=== PATIENT | female | born 1985 | race Caucasian/White ===

== ENCOUNTER 2024-02-05 01:32 | Outpatient (CLI) | payer MEDICAID, SELFPAY ==
--- NOTE | 2024-02-05 | DI.US_ITS ---
Exam(s) US OB BIOPHYSICAL PROFILE EXAM: US OB BIOPHYSICAL PROFILE CLINICAL HISTORY: , Postdates monitoring, pt requests Melvin as tech TECHNIQUE: Ultrasound biophysical profile performed using standard protocol. COMPARISON: No exams were available for comparison FINDINGS: ULTRASOUND BIOPHYSICAL PROFILE: Number of fetuses: One. position: Cephalic. heart rate: 129 bpm. Placental grade: 3. Placental location: Anterior. No evidence of previa. Amniotic fluid index: 18.2 cm. Single deepest pocket is 6.4 cm. BIOPHYSICAL PROFILE SCORE: breathin out of 2 movement: 2 out of 2 tone: 2 out of 2 Amniotic fluid: 2 out of 2 Overall biophysical profile score: 8 out of 8. IMPRESSION: Single live intrauterine gestation. Biophysical profile 8 out of 8. DATA REPOSITORY:
== END 2024-02-05 01:52 ==
LOC: DI 01:33
PROVIDERS: PCP Midwife; Visit Provider Midwife
DX: Z34.83 Encounter for supervision of other normal pregnancy, third trimester (principal); Z3A.41 41 weeks gestation of pregnancy
CPT/HCPCS: 76815; 76819

== ENCOUNTER 2024-02-05 07:52 | Outpatient (CLI) | payer MEDICAID, SELFPAY ==
[2024-02-05 12:15] VITALS: BP 133/85; PULSE 90; TEMP 36.5
[2024-02-05 12:16] VITALS: BP 133/85; PULSE 90
--- NOTE | 2024-02-05 12:45 | W.OBNST ---
Date of service: 02/05/24 Time of Service: 12:45 NST Evaluation Reason for NST Reasons for Nonstress Test: POSTDATES Gestational Age Gestational Age in Weeks and Days: 41 Weeks and 2Days Test and Monitor Explained Test/Monitor Explained: Test Explained, Monitor Explained and Patient Verbalized Understanding Vital Signs Blood Pressure: 133/85 Pulse: 90 Temperature: 97.7 F NST Information Date on Monitor: 02/05/24 Time on Monitor: 12:11 Date off Monitor: 02/05/24 Time off Monitor: 12:33 Total Time on Monitor: 22 NST Interventions: PO Hydration and Other Contraction Frequency: 4-5 NST Evaluation Patient States Movement: Present FHR Baseline: 135 Variability: Moderate 6-25 bpm Accelerations: 15x15 Decelerations: None NST Results: Reactive Note Ultrasound Done: N/A. NST Note Note: Category 1, reactive nonstress test. NST Reviewed and Verified by: Modesta Landeros
[2024-02-05 12:46] VITALS: BP 133/85; PULSE 90; TEMP 36.5
== END 2024-02-05 12:38 ==
LOC: BCD 08:00 → OBS 12:14
PROVIDERS: PCP Midwife; Visit Provider Obstetrics & Gynecology Gynecology
DX: O48.0 Post-term pregnancy (principal); Z3A.41 41 weeks gestation of pregnancy
CPT/HCPCS: 59025

== ENCOUNTER 2024-02-07 06:36 | Inpatient (IN) | payer MEDICAID, SELFPAY ==
[2024-02-07] VITALS (18 sets, daily range): BP systolic 107–141; BP diastolic 53–85; PULSE 103–141; RESP 12–35; TEMP 36.2–37.8; O2SAT 94–99; BMI 32.5
--- NOTE | 2024-02-07 06:44 | W.ED.GENAD ---
Discharge Plan Disposition Patient Disposition: Admit to [facility] Condition: Critical Discharge Details Clinical Impression: hemorrhage, Hypovolemia due to hemorrhage, Shock Attending Provider: Modesta Landeros Primary Care Provider: IMAN PERRIN ED Provider: Radha Jeong General Mode of arrival: EMS. Date/Time Provider Initiated Documentation: 02/07/24 06:44. Limitations to Documentation: no limitations. Information obtained by: patient and EMS (EMS & technical translator). HPI Narrative: 38yo F presenting with post- hemmoraghe after planned attended home . ROM around 0100, vaginal delivery at 0443, placenta delivered at 0508. Since then persistent vaginal bleeding, some clots. Recieved pitocin, methergine, buccal & rectal misoprostol prior to arrival. EBL 1500ml. Patient reports uterine cramping, denies lightheadedness, shortness of breath, or chest pain. Review of Systems Narrative: see HPI Exam Narrative Exam Narrative: General: Alert, well appearing, well nourished, in no acute distress. Head: Normocephalic, atraumatic Neck: Trachea midline, ?Neck supple. ENT: ?MMM.? No oropharygeal lesions or exudate. Cardiac: ?RRR, no murmurs appreciated Resp: No respiratory distress. CTAB. Abd: ?Soft. : ?Fundal exam by experimental box tester & OB RN at bedside, reported as initially U+2, firm @ U after uterine massage. Trickle of blood with massage. Extremities: ?No deformities.? No peripheral edema. Skin: Cool, no rashes on visible skin. Neurologic: GCS 15. ? Moves all extremities freely against gravity Course Lab/Test Results Lab/Test Results: Laboratory Tests Range/Units 02/07/24 02/07/24 06:30 06:31 ABO/Rh Cancelled Antibody Screen Cancelled Crossmatch See Detail Medical Decision Making 38yo F presenting via EMS with post- hemmoraghe after planned attended home . OB, anesthesia, and OR team notified prior to patient arrival. Per EMS/ attendants, ROM around 0100, vaginal delivery at 0443, placenta delivered at 0508. Received pitocin, methergine, buccal & rectal misoprostol prior to arrival. EBL 1500ml. Tachycardiac on arrival to 110's, vital signs otherwise reassuring; likely stage [address] Landeros experimental box tester at bedside on patient arrival and consented pt for blood and for OR; fundal exam by OB & OB RN initially U+2, then firm @U after massage, trickle of blood noted with massage. Started on pitocin drip in the ED and preop ancef. CBC, CMP, type and cross sent. Taken emergently to OR from ED. Quality:SDOH Health Related Social Needs: No Data to Display Critical Care Time Critical Care Time Critical Care Time: Yes Total Critical Care Time: 31 Attestation: Due to a high probability of clinically significant, life threatening deterioration, the patient required my highest level of preparedness to intervene emergently and I personally spent this critical care time directly managing the patient. This critical care time included time at the bedside obtaining a history; examining the patient; ordering studies; arranging urgent treatment with development of a management plan and discussion with OB provider at bedside. This critical care time was performed to assess and manage the high probability of imminent, life-threatening deterioration that could result in multi-organ failure. It was exclusive of separately billable procedures and treating other patients [facility] All Active Problems (Updated 02/07/24 @ 07:14 by Radha Jeong MD) Shock (Acute) Hypovolemia due to hemorrhage (Acute) hemorrhage (Acute) Social History Smoking/Tobacco Use Status: Never Smoking risk assessment performed?: Yes Alcohol Intake: never Drug use: Never Substance use type: does not use Housing: house
[2024-02-07] MEDS: ceFAZolin 2,000 MG in Normal Saline 100 ML 200 MG IVPB (06:50)
--- NOTE | 2024-02-07 06:51 | ANES.PREOP_ITS ---
General Info Date of Service Date Performed: 02/07/24 Height: 5 ft 1 in Weight: 78.2 kg Body Mass Index (BMI): 32.5 Surgical Procedure: Operation Date: 02/07/24 07:40 Proposed Procedure Side Surgeon p Suction Completion Modesta Landeros DO Meds Allergies and Home Medications Current Visit Medications: Current Medications Generic Name Dose Route Start Last Admin Trade Name Freq PRN Reason Stop Dose Admin Cefazolin Sodium 2,000 mg/ 100 mls @ 200 mls/hr 02/07/24 06:47 Sodium Chloride IVPB 02/07/24 07:16 NOW ONE Vital Signs and Lab Results Vital Signs Most Recent Vital Signs in EMR: Most Recent Vital Signs Temp Pulse Resp BP Pulse Ox 36.2 C L 108 H 16 141/85 H 97 02/07/24 06:36 02/07/24 06:36 02/07/24 06:36 02/07/24 06:36 02/07/24 06:36 Lab Results 02/07/24 06:30 02/07/24 06:30 Blood Type / Crossmatch: 2 Antibody Screen Pending 02/07/24 Crossmatch See Detail 02/07/24 Complete Blood Count: 2 White Blood Count Pending 02/07/24 06:30 Red Blood Count Pending 02/07/24 06:30 Hemoglobin Pending 02/07/24 06:30 Hematocrit Pending 02/07/24 06:30 Platelet Count Pending 02/07/24 06:30 Complete Metabolic Panel: 2 Sodium Pending 02/07/24 06:30 Potassium Pending 02/07/24 06:30 Chloride Pending 02/07/24 06:30 Carbon Dioxide Pending 02/07/24 06:30 BUN Pending 02/07/24 06:30 Creatinine Pending 02/07/24 06:30 Est GFR (CKD-EPI 2020) Pending 02/07/24 06:30 Calcium Pending 02/07/24 06:30 Albumin Pending 02/07/24 06:30 Glucose Pending 02/07/24 06:30 Liver Function Panel: 2 Alanine Aminotransferase (ALT/SGPT) Pending 02/07/24 06: 30 Aspartate Amino Transf (AST/SGOT) Pending 02/07/24 06:30 Coagulation Panel: 2 No Data to Display Cardiac Panel: 2 No Data to Display Arterial Blood Gas: 2 No Data to Display Venous Blood Gas: 2 No Data to Display Pancreas Panel: 2 No Data to Display Thyroid Panel: 2 No Data to Display Infectious Disease: 2 No Data to Display Blood Cultures: 2 No Data to Display Toxicology Panel: 2 No Data to Display Panel: 2 No Data to Display Anesthesia Assessment and Plan Anesthesia History Personal History: No History of Anesthesia Complications Family History: No Family History of Anesthesia Complications Exercise Tolerance Exercise Tolerance: Metabolic Equivalents>4 Cardiac & Pulmonary Exam Cardiac Exam: Normal S1/S2 Heart Sounds Pulmonary Exam: Clear Bilateral Breath Sounds Implantable Cardiac Device Does patient have a Pacemaker or an ICD?: No Airway Exam Known Difficult Airway: No Mallampati Class: 2 Mouth Opening: Normal (> 3cm) Thyromental Distance: Less than 3 cm Neck Range of Motion: Full ROM Neck Circumference: Normal Teeth Condition: Normal Dentition ASA Classification ASA Score: ASA 2 Emergency Case?: Yes NPO Status NPO Status: Full Stomach Status Status: Not Relevant due to Medical History Anesthesia Plan Resuscitation Status: Full Code Anesthesia Technique: General Anesthesia Airway Planned: Endotracheal Tube Monitors Used: Standard Monitors
[2024-02-07] MEDS: ELECTROLYTE-R SOLUTION 1,000 ML 30 ML IV (06:54)
[2024-02-07 06:58] LABS: Abs Immature Grans 0.15 10^3/uL (0.0-0.06); Absolute Lymphocyte Count 0.88 10^3/uL (1.2-3.4); Basophils % 0.3 %; Eosinophils % 0.1 %; HCT 37.3 % (36.0-46.0); HGB 13.1 g/dL (11.2-15.7); Immature Grans % 0.8 %; Lymphocytes % 4.9 %; MCH 31.5 pg (27.0-33.0); MCHC 35.1 % (32.0-36.0); MCV 90 fL (80-95); MPV 10.3 fL (8.0-11.0); Monocytes % 3.2 %; Neutrophils % 90.7 %; Platelet Count 170 10^3/uL (130-400); RBC 4.16 10^6/uL (3.93-5.22); RDW 13.1 % (11.7-14.6); RDW-SD 42.4 fL; WBC 17.91 10^3/uL (4.4-10.8)
[2024-02-07 07:02] LABS: Absolute Basophil Count 0.05 10^3/uL (0.0-0.2); Absolute Eosinophil Count 0.02 10^3/uL (0.0-0.7); Absolute Monocyte Count 0.57 10^3/uL (0.1-0.8); Absolute Neutrophil Count 16.24 10^3/uL (1.2-6.7)
[2024-02-07 07:20] LABS: ALT 31 U/L (14-59); AST 31 U/L (15-37); Albumin 2.7 g/dL (3.4-5.0); Alkaline Phosphatase 192 U/L (46-116); BUN 9 mg/dL (7-18); CREATININE 0.9 mg/dL (0.55-1.02); Calcium 8.9 mg/dL (8.5-10.1); Chloride 104 mmol/L (98-107); Estimated GFR 84.44 (mL/min/1.73m2); Glucose 105 mg/dL (74-106); Sodium 140 mmol/L (136-145); Total Protein 6.2 g/dL (6.4-8.2)
--- NOTE | 2024-02-07 07:24 | POCSPONT_PTH ---
PATIENT: Celeste Bryant LOC: OBS U#:[id number] AGE/SX: 38/F ROOM: OBS.303 RE02/07/[address]: Modesta Landeros DO : 1985 BED: A DIS: 02/08/2024 SPEC #: [id number] RECD: 02/07/24 12:26 STATUS: MAC REQ #: [id number] WHITLEY: 02/07/24 07:[address]: Modesta Landeros DEPT: Surgical Specimen RECD BY: Hillary Bundy ENTERED: 02/07/24 12:27 SP TYPE: POCSPONT GABE DR: IMAN PERRIN Tissues: 2 - ,SPONTANEOUS Procedures: GROSS AND MICRO LEVEL 4 Comments: [id number]
[2024-02-07] MEDS: Oxytocin/Normal Saline 30 UNIT/500 ML BAG 95 UNITS IV (07:30)
--- NOTE | 2024-02-07 08:22 | W.ANESPOSTOP ---
Postoperative Evaluation Date, Time and Location Date Performed: 02/07/24 Time Performed: 08:22 Patient Location: PACU Vital Signs Most Recent Imported Vital Signs: Most Recent Vital Signs Temp Pulse Resp BP Pulse Ox 36.7 C 122 H 16 126/77 95 02/07/24 08:12 02/07/24 08:21 02/07/24 08:21 02/07/24 08:21 02/07/24 08:21 Pain Score Most Recent Pain Score: Most Recent Pain Score Pain Level 2 02/07/24 08:12 Assessment Mental Status: Awake (Alert & Oriented to Patient Baseline) Airway and Respiratory Function: Patent airway with normal (patient baseline) respiratory exam Cardiovascular Function: Hemodynamically Stable Hydration Status: Adequately Hydrated Nausea & Vomiting: No Nausea or Vomiting Pain: Pain is tolerable per patient Peripheral Nerve Block: Patient did not receive a nerve block
--- NOTE | 2024-02-07 09:09 | HPE_ITS ---
Date of service: 02/07/24 Time of Service: 09:09 Assessment and Plan Assessment and plan (1) Normal spontaneous vaginal delivery: Status: Acute Assessment and plan: Patient is in the immediate period after a vaginal at home. She had a post hemorrhage with a appropriate care. She was transition from home to the hospital facility for further evaluation, and manage ment. She was admitted for surgical intervention with exam under anesthesia, uterine curettage. She was noted to have a cervical laceration which was small and repaired and a very small perineal laceration, also repaired. She had minimal further bleeding intraoperatively and in the postoperative period (2) hemorrhage: Status: Acute Assessment and plan: Currently stable. Received misoprostol, Methergine, Pitocin at home prior to presentation to the hospital. She had ongoing Pitocin IV, and received 1 dose of TXA intraoperatively. No significant bleeding intraoperative, or in the postoperative period OB-HPI Labor/Delivery History of Present Illness Reason for Visit: hemorrhage Chief Complaint: Vaginal Bleeding (Status post vaginal , 1500 cc blood loss) , Associated Signs and Symptoms of Vaginal Bleedin cc blood loss. Received misoprostol, Pitocin, Methergine at home ; Other. Comments: Patient is a 38-year-old 2 now para 2 who was brought with her home outboard motors experimental mechanic from home after delivery. Her course was uncomplicated other than being postdates. She did have a nonstress test here at our facility which was reactive. This morning at approximately 445 she had a normal spontaneous vaginal delivery, followed by delivery of the placenta at approximately 508. Per report from the home outboard motors experimental mechanic after delivery, she did have some increased bleeding for which she received 3 medications which included misoprostol buccally and orally, Methergine IM, and Pitocin IM. She would have intermittently heavier episodes of bleeding, and with the use of a third medication, transfer to hospital facility was undertaken. Homeward midway notified both hospital, EMS and myself of the patient's condition. She was transported from home to the emergency department. Patient had passed a large clot just prior to admission. Her bleeding at the time of presentation had significantly decreased. In light of a qualitative blood loss of approximately 1500 cc, and need for evaluation, the decision was to take her to the surgical suite for anesthesia and exam, uterine curettage, and appropriate intraoperative procedures. Informed Consent Informed Consent: Other (Exam under anesthesia, uterine curettage, possible laparotomy) Review of Systems Narrative: Patient was alert, oriented, awake at the time of her presentation. She was appropriately answering questions. Her bleeding was diminished, and she was appropriately responsive. Constitutional Comments: Feeling well, tired, . ENT Ears, Nose, Mouth, and Throat: Reports system reviewed and no additional complaints, except as documented Cardiovascular Cardiovascular: Reports as per HPI, Denies chest pain, Denies lightheadedness and Denies dyspnea Respiratory Respiratory: Denies dyspnea Genitourinary Comments: Appropriate crampiness Musculoskeletal Musculoskeletal: Reports system reviewed and no additional complaints, except as documented Hematologic/Lymphatic Hematologic/Lymphatic: Reports system reviewed and no additional complaints, except as documented PFSH All Active Problems (Updated 02/07/24 @ 09:15 by Modesta Landeros DO) Normal spontaneous vaginal delivery (Acute) 02/07/2024. Home . Male infant Talon. hemorrhage, 1500 cc at home. Transition to hospital for exam under anesthesia, curettage Shock (Acute) Hypovolemia due to hemorrhage (Acute) hemorrhage (Acute) Social History Smoking/Tobacco Use Status: Never Smoking risk assessment performed?: Yes Alcohol Intake: never Drug use: Never Substance use type: does not use Housing: house Meds Allergies and Home Medications Allergies Allergy/AdvReac Type Severity Reaction Status Date / Time Sulfa (Sulfonamide Allergy Unknown Hives Verified 02/07/24 09:14 Antibiotics) Exam Physical Exam Vital signs: Temp Pulse Resp BP Pulse Ox 98.1 F 122 H 16 126/77 95 02/07/24 08:12 02/07/24 08:21 02/07/24 08:21 02/07/24 08:21 02/07/24 08:21 Vital Signs Reviewed: Yes Narrative: Mildly tachycardic, appropriate for the , postoperative period Constitutional Constitutional: no acute distress and average body habitus Detailed Labor and Delivery Exam Rodriguez Score: Cervical Points Exam 0 1 2 3 Dilation Closed 1-2cm 3-4 cm 5-6cm Effacement 0-30% 40-50% 60-70% 80% Consistency Firm Medium Soft Station -3 -2 -1,0 +1,+2 Position Posterior Mid Anterior Results Abnormal Lab Findings: Abnormal Labs 02/07/24 06:39 WBC 17.91 H Absolute Neutrophils 16.24 H Absolute Lymphocytes 0.88 L Alkaline Phosphatase 192 H Total Protein 6.2 L Albumin 2.7 L Crossmatch See Detail Risk Assessment Risks Reviewed Risks Reviewed Upon Admission: Yes
--- NOTE | 2024-02-07 09:17 | ROE_ITS ---
Date of service: 02/07/24 Time of Service: 09:17 Operative Note Operative Note DATE OF PROCEDURE: 02/07/24 PRE-OP DIAGNOSIS: Status post vaginal delivery, hemorrhage POST-OP DIAGNOSIS: same Small cervical laceration, small perineal laceration, possibility of uterine fibroid. PROCEDURE: Exam under anesthesia, repair of cervical laceration, repair of perineal laceration. SURGEON: Modesta Landeros ANESTHESIA TYPE: General LMA/ETT Refer to Anesthesia Record ESTIMATED BLOOD LOSS: 100 PATHOLOGY: other (Small fragment of uterine curetting) COMPLICATIONS: None Patient was transported to: PACU Patient's condition: stable Indications: hemorrhage Findings: Cervical laceration at the 9 o'clock position, small, repaired. Perineal laceration, first-degree. Repaired. Bulky uterus with clinical suspicion of a fibroid at the left fundal region. Procedure Description: Patient was taken from the ER to the OR for surgical exploration. The risk, benefits, and alternatives of surgical intervention were explained to the patient in full informed consent was obtained. She was taken to the operating suite with the previously placed IV running. She was initially placed in the supine position and endotracheal intubation performed for the administration of general anesthesia with ease. A second IV was established. She was then placed in the modified dorsal lithotomy position in yellowfin stirrups and prepped and draped in the usual sterile fashion. She did receive Ancef, 2 g for infection prophylaxis. She had a Lambert catheter inserted which was draining clear yellow urine. Exam under anesthesia revealed a uterus that was bulky, with deviation to the left near to the umbilicus though firm. Exploration of the uterine cavity failed to reveal significant tissue, clot, or retained products. Gentle sharp curettage was performed. Examination of the cervix revealed a very small laceration at the 9 o'clock position which was oversewn with 2 sutures of 0 Vicryl in a simple interrupted fashion to achieve hemostasis. The remainder of the cervix appears intact. Inspection of the vaginal mucosa and vaginal vault appears intact without evidence of pelvic hematoma. She does have a small laceration at the perineum, first-degree which is repaired with 3-0 Vicryl suture. Patient tolerated the procedure without difficulty. M upon completion thoroughly from uterus, cervix, vagina, and perineum patient appears to be in stable condition. She was returned to the dorsal supine position and awoke from anesthesia without difficulty. She was transition to the postanesthesia care unit for ongoing evaluation and subsequently transferred to the [facility] for ongoing care. Fluids: Crystalloid per anesthesia Pathology: Fragment of uterine curettage for examination Complications: None apparent Findings: Small cervical laceration repaired, small perineal laceration repaired, uterus firm, clinical suspicion of a fundal left uterine fibroid.
[2024-02-07] MEDS: Ibuprofen 600 MG TAB PO (09:22)
[2024-02-07] MEDS: Acetaminophen 325 MG TAB 650 MG PO ×3 (09:22→19:56)
[2024-02-07 17:02] LABS: HCT 30.9 % (36.0-46.0); HGB 11.2 g/dL (11.2-15.7); MCH 31.7 pg (27.0-33.0); MCHC 36.2 % (32.0-36.0); MCV 88 fL (80-95); MPV 10.4 fL (8.0-11.0); Platelet Count 176 10^3/uL (130-400); RBC 3.53 10^6/uL (3.93-5.22); RDW 12.9 % (11.7-14.6); RDW-SD 40.9 fL; WBC 20.22 10^3/uL (4.4-10.8)
[2024-02-08 02:04] VITALS: BP 98/62; PULSE 105; RESP 18; TEMP 36.7
[2024-02-08] MEDS: Acetaminophen 325 MG TAB 650 MG PO ×2 (04:37→10:19)
[2024-02-08 06:31] LABS: Abs Immature Grans 0.15 10^3/uL (0.0-0.06); Absolute Basophil Count 0.03 10^3/uL (0.0-0.2); Absolute Lymphocyte Count 2.14 10^3/uL (1.2-3.4); Absolute Monocyte Count 1.08 10^3/uL (0.1-0.8); Absolute Neutrophil Count 12.45 10^3/uL (1.2-6.7); Basophils % 0.2 %; Eosinophils % 0.6 %; HCT 27.9 % (36.0-46.0); HGB 9.8 g/dL (11.2-15.7); Immature Grans % 0.9 %; Lymphocytes % 13.4 %; MCH 31.2 pg (27.0-33.0); MCHC 35.1 % (32.0-36.0); MCV 89 fL (80-95); MPV 9.9 fL (8.0-11.0); Monocytes % 6.8 %; Neutrophils % 78.1 %; Platelet Count 161 10^3/uL (130-400); RBC 3.14 10^6/uL (3.93-5.22); RDW 13.3 % (11.7-14.6); RDW-SD 42.9 fL; WBC 15.94 10^3/uL (4.4-10.8)
[2024-02-08 07:45] VITALS: BP 99/61; PULSE 105; RESP 12; TEMP 36.8
--- NOTE | 2024-02-08 08:21 | W.PM.OBPNV1 ---
Date of service: 02/08/24 Time of Service: 08:21 Assessment and Plan Assessment and plan (1) hemorrhage: Status: Acute Assessment and plan: day #1 status post home with hemorrhage. She was taken the operating suite for exam under anesthesia, uterine curettage, pair of a small cervical and perineal laceration. Doing well today. Breast-feeding. Would like to speak with the sales development consultant for recommendations and will be transitioned back to home under the care of her home flying instructor. All questions were answered. (2) Normal spontaneous vaginal delivery: Status: Acute Subjective Subjective Interval history: Patient seen and examined this morning. Doing well. Vital signs are stable. Hemoglobin is stable. Has slept reasonably well though will be discharged today to home. She will have close follow-up with her home flying instructor. All of her questions were answered [place] baby status: Doing well and Nursing well Exam Physical Exam Vital signs: Temp Pulse Resp BP Pulse Ox 98.2 F 105 H 12 99/61 L 97 02/08/24 07:45 02/08/24 07:45 02/08/24 07:45 02/08/24 07:45 02/07/24 15:35 Vital Signs Reviewed: Yes Constitutional Constitutional: no acute distress HEENT Exam HEENT Exam: Normal Neck Exam Neck Exam: Normal Respiratory Exam Respiratory Exam: Normal Cardiovascular Exam Cardiovascular Exam: Normal Fundal Exam Fundus: Below Umbilicus and Firm Results Hemoglobin/Hematocrit: Hgb 9.8 g/dL (11.2-15.7) L 02/08/24 06:20 Hct 27.9 % (36.0-46.0) L 02/08/24 06:20 Abnormal Lab Findings: Abnormal Labs 02/07/24 02/07/24 02/08/24 06:39 16:55 06:20 WBC 17.91 H 20.22 H 15.94 H RBC 3.53 L 3.14 L Hgb 9.8 L Hct 30.9 L 27.9 L MCHC 36.2 H Absolute Neutrophils 16.24 H 12.45 H Absolute Lymphocytes 0.88 L Absolute Monocytes 1.08 H Alkaline Phosphatase 192 H Total Protein 6.2 L Albumin 2.7 L Crossmatch See Detail
--- NOTE | 2024-02-08 08:22 | W.PM.OBDISCH ---
Date of service: 02/08/24 Time of Service: 08:23 DS: Diagnosis Discharge Diagnosis (1) hemorrhage: Status: Acute Asessment and Plan: Postop and day #1. Discharge home today. Continue vitamins, iron supplementation. Home chemical machine tender will see the patient today at home for evaluation. All questions answered. (2) Normal spontaneous vaginal delivery: Status: Acute Discharge Plan Disposition Patient Disposition: Home Condition: Good Discharge Details Reason For Visit: hemorrhage Admit Date/Time: 02/07/24 08:51 Admit Provider: Modesta Landeros Attending Provider: Modesta Landeros Primary Care Provider: IMAN PERRIN Hospital Course Hospital Course: Patient was brought by EMS to the emergency department after having a home with a hemorrhage. In the field she did received Methergine, misoprostol, Pitocin. She was taken the operating suite shortly after arrival for exam under anesthesia uterine curettage, repair of small cervical laceration and repair of small perineal laceration. As of note, she does appear to have a large left fundal fibroid which may have contributed to her hemorrhage. She had an uncomplicated postoperative course and was discharged to home postoperative day #1 under the care of her home chemical machine tender. She will continue her vitamins and iron supplementation. She is breast-feeding her . She will be seen in the office sometime after her 6-week checkup for reevaluation, ultrasound, and consultation regarding tubal sterilization. All questions answered Discharge Instructions Activity:: Activity as Tolerated Equipment/Supplies:: No Equipment Needed Diet:: As Tolerated Discharge Orders Discharge Orders: Discharge Order (Routine); Ordered 02/08/24 Ordered By: Modesta Landeros OB:DS Summary Contraception Discussed Contraception Discussed: Yes Contraceptive Plan: Tubal Ligation, Status at Discharge Functional status at discharge: independent ambulation Overall status at discharge: patient is progressing back to baseline Mental Status: mental status grossly normal Speech and Movement: speech and movement normal Mood: congruent mood Affect: normal affect Quality:SDOH Health Related Social Needs: No Data to Display Exam Physical Exam Vital signs: Temp Pulse Resp BP Pulse Ox 98.2 F 105 H 12 99/61 L 97 02/08/24 07:45 02/08/24 07:45 02/08/24 07:45 02/08/24 07:45 02/07/24 15:35 PFSH All Active Problems (Updated 02/07/24 @ 09:15 by Modesta Landeros DO) Normal spontaneous vaginal delivery (Acute) 02/07/2024. Home . Male infant Talon. hemorrhage, 1500 cc at home. Transition to hospital for exam under anesthesia, curettage Shock (Acute) Hypovolemia due to hemorrhage (Acute) hemorrhage (Acute) Social History Smoking/Tobacco Use Status: Never Smoking risk assessment performed?: Yes Alcohol Intake: never Drug use: Never Substance use type: does not use Housing: house DS: Data Vitals/I&O Vitals and I&O: Vital Signs Temperature 98.2 F 02/08/24 07:45 Temperature Source Temporal Artery Scan 02/07/24 06:36 Temperature Source Oral 02/08/24 07:45 Pulse 105 H 02/08/24 07:45 Pulse Rhythm Regular 02/08/24 07:45 Pulse 121 H 02/07/24 08:21 Respiratory Rate 12 02/08/24 07:45 Respiratory Effort Normal, Non-Labored 02/07/24 07:03 Blood Pressure 99/61 L 02/08/24 07:45 Blood Pressure Mean 73 02/08/24 07:45 Pulse Oximetry 97 02/07/24 15:35 Respiratory End-tidal CO2 30 02/07/24 08:16 Oxygen Delivery Method Room Air 02/07/24 10:11 Oxygen Flow Rate 0 02/07/24 10:11 Pain Level 4 02/08/24 04:37 Comment Patient declined any pain or discomfort at this time 02/07/24 15:35 Intake & Output 02/07/24 02/07/24 02/08/24 11:59 23:59 11:59 Intake Total 350 / 350 Output Total 600 / 3450 2850 / 3450 Balance -250 / -3100 -2850 / -3100 Weight 177 lb Intake: IV 350 / 350 Output: Urine 600 / 3450 2850 / 3450 Other: Urine Color Yellow Pale Urine Appearance Clear Clear Urine Odor None Comment Reported by patient stating she voided around 14:00; explained to patient to void in hat so that we could measure. Emesis Description None Data Completed and Pending Labs on day of discharge: Labs from last 24 hours 02/08/24 02/07/24 02/07/24 06:20 16:55 06:39 WBC 15.94 H 20.22 H RBC 3.14 L 3.53 L Hgb 9.8 L 11.2 Hct 27.9 L 30.9 L MCV 89 88 MCH 31.2 31.7 MCHC 35.1 36.2 H RDW 13.3 12.9 Plt Count 161 176 MPV 9.9 10.4 Immature Gran % 0.9 Neutrophils % 78.1 Lymphocytes % 13.4 Monocytes % 6.8 Eosinophils % 0.6 Basophils % 0.2 Nucleated RBC % 0.0 Absolute Neutrophils 12.45 H Absolute Lymphocytes 2.14 Absolute Monocytes 1.08 H Absolute Eosinophils 0.10 Absolute Basophils 0.03 ABO/Rh A Positive Antibody Screen NEGATIVE Crossmatch See Detail
--- NOTE | 2024-02-08 08:26 | W.PM.OBDISCH ---
Date of service: 02/08/24 Time of Service: 08:26 DS: Diagnosis Discharge Diagnosis (1) hemorrhage: Status: Acute Asessment and Plan: Patient is postoperative and day #1 status post home with hemorrhage. She is also postoperative from explained under anesthesia, uterine curettage, repair of cervical and perineal lacerations which were small. Did well and postoperatively. Going home to the care of her home grounds maintenance supervisor. Continue breast-feeding. Follow-up in the office in 6 weeks time. Patient desires tubal sterilization (2) Normal spontaneous vaginal delivery: Status: Acute Discharge Plan Disposition Patient Disposition: Home Condition: Good Discharge Details Reason For Visit: hemorrhage Admit Date/Time: 02/07/24 08:51 Admit Provider: Modesta Landeros Attending Provider: Modesta Landeros Primary Care Provider: IMAN PERRIN Hospital Course Hospital Course: Patient was brought by EMS to the emergency department after having a home with a hemorrhage. In the field she did received Methergine, misoprostol, Pitocin. She was taken the operating suite shortly after arrival for exam under anesthesia uterine curettage, repair of small cervical laceration and repair of small perineal laceration. As of note, she does appear to have a large left fundal fibroid which may have contributed to her hemorrhage. She had an uncomplicated postoperative course and was discharged to home postoperative day #1 under the care of her home grounds maintenance supervisor. She will continue her vitamins and iron supplementation. She is breast-feeding her . She will be seen in the office sometime after her 6-week checkup for reevaluation, ultrasound, and consultation regarding tubal sterilization. All questions answered Discharge Instructions Activity:: Activity as Tolerated Equipment/Supplies:: No Equipment Needed Diet:: As Tolerated Discharge Orders Discharge Orders: Discharge Order (Routine); Ordered 02/08/24 Ordered By: Modesta Landeros OB:DS Summary Contraception Discussed Contraception Discussed: Yes, Status at Discharge Functional status at discharge: independent ambulation Overall status at discharge: patient is progressing back to baseline Mental Status: mental status grossly normal Speech and Movement: speech and movement normal Mood: congruent mood Affect: normal affect Quality:SDOH Health Related Social Needs: No Data to Display Exam Physical Exam Vital signs: Temp Pulse Resp BP Pulse Ox 98.2 F 105 H 12 99/61 L 97 02/08/24 07:45 02/08/24 07:45 02/08/24 07:45 02/08/24 07:45 02/07/24 15:35 PFSH All Active Problems Normal spontaneous vaginal delivery (Acute) 02/07/2024. Home . Male Talon. hemorrhage, 1500 cc at home. Transition to hospital for exam under anesthesia, curettage Shock (Acute) Hypovolemia due to hemorrhage (Acute) hemorrhage (Acute) Social History Smoking/Tobacco Use Status: Never Smoking risk assessment performed?: Yes Alcohol Intake: never Drug use: Never Substance use type: does not use Housing: house DS: Data Vitals/I&O Vitals and I&O: Vital Signs Temperature 98.2 F 02/08/24 07:45 Temperature Source Temporal Artery Scan 02/07/24 06:36 Temperature Source Oral 02/08/24 07:45 Pulse 105 H 02/08/24 07:45 Pulse Rhythm Regular 02/08/24 07:45 Pulse 121 H 02/07/24 08:21 Respiratory Rate 12 02/08/24 07:45 Respiratory Effort Normal, Non-Labored 02/07/24 07:03 Blood Pressure 99/61 L 02/08/24 07:45 Blood Pressure Mean 73 02/08/24 07:45 Pulse Oximetry 97 02/07/24 15:35 Respiratory End-tidal CO2 30 02/07/24 08:16 Oxygen Delivery Method Room Air 02/07/24 10:11 Oxygen Flow Rate 0 02/07/24 10:11 Pain Level 4 02/08/24 04:37 Comment Patient declined any pain or discomfort at this time 02/07/24 15:35 Intake & Output 02/07/24 02/07/24 02/08/24 11:59 23:59 11:59 Intake Total 350 / 350 Output Total 600 / 3450 2850 / 3450 Balance -250 / -3100 -2850 / -3100 Weight 177 lb Intake: IV 350 / 350 Output: Urine 600 / 3450 2850 / 3450 Other: Urine Color Yellow Pale Urine Appearance Clear Clear Urine Odor None Comment Reported by patient stating she voided around 14:00; explained to patient to void in hat so that we could measure. Emesis Description None Data Completed and Pending Labs on day of discharge: Labs from last 24 hours 02/08/24 02/07/24 02/07/24 06:20 16:55 06:39 WBC 15.94 H 20.22 H RBC 3.14 L 3.53 L Hgb 9.8 L 11.2 Hct 27.9 L 30.9 L MCV 89 88 MCH 31.2 31.7 MCHC 35.1 36.2 H RDW 13.3 12.9 Plt Count 161 176 MPV 9.9 10.4 Immature Gran % 0.9 Neutrophils % 78.1 Lymphocytes % 13.4 Monocytes % 6.8 Eosinophils % 0.6 Basophils % 0.2 Nucleated RBC % 0.0 Absolute Neutrophils 12.45 H Absolute Lymphocytes 2.14 Absolute Monocytes 1.08 H Absolute Eosinophils 0.10 Absolute Basophils 0.03 ABO/Rh A Positive Antibody Screen NEGATIVE Crossmatch See Detail
--- NOTE | 2024-02-08 10:03 | LC_ITS ---
<Statement entered by Carmencita Ann - 03/22/24 12:26> Incidental chart access. Defer to provider. Date of service: 02/08/24 Time of Service: 08:45 Note Note: Visited couplet per parent request Subjective Identifiers Parent's Name: Celeste Obrien Parental Concerns: confirm latch/not latching on left side, sore nipples, hx of short /not meeting goals with first child Provider Concerns: home admission for hemorrhage, not in [facility] care Indications for Referral Maternal Request: Yes Background Experience: Has Experience Feeding Experience Comments: first child was 37 wks, early suppelement with formula, hyperbilirubinemia trx /c formula supplement, no phototherapy Support: Supportive and Involved Partner Feeding Preference: Exclusive Pump Availability: Has Pump Has Patient Been Counseled on Single User Pump Recommendations by CDC?: Yes Current Experience: Established Maternal Risk Factors: Age <20 or >30 years, Breast Problems and Delivery Problems Delivery Hx Gestational Age Weeks/Days: 41 5/7 Type of Delivery: Vaginal Gender: Male Gestational Status: Term (39-41.6 wks) Objective Note: let sleep for first 16 hours and now offering breast every 2 hours per odd ticket clerk recommendation. sustained latch and suck on right side, some rousing on his own, and parents waiting for 2 h interval, right nipple tenderness Feeding/Pumping History Optimal Feeding: Frequency 8-12 feeds per day, Duration 10-15 Minutes Sustained Nursing, Rouses Independently for feedings, Longest Interval between feeds is< 4-6 hours and Swallowing Feeding Concerns: Scheduled Feedings and Maternal Discomfort Summary Summary: Intake normal for day of Life, Satisfied and Sleepy Results Infant Weight/I&O Weight Change: Weight 80.286 kg I&O: 02/06/24 02/07/24 02/07/24 02/08/24 23:59 11:59 23:59 11:59 Intake Total 350 / 350 Output Total 600 / 3450 2850 / 3450 Balance -250 / -3100 -2850 / -3100 Intake: IV 350 / 350 Output: Urine 600 / 3450 2850 / 3450 Other: Urine Color Yellow Pale Urine Appearance Clear Clear Urine Odor None Comment Reported by patient stating she voided around 14:00; explained to patient to void in hat so that we could measure. Emesis Description None Weight 80.286 kg Output,Optimal: Adequate Voids for Day of Life, Adequate stools for Day of Life and Stool color as expected for day of life NB Physical Readiness to Feed Flexion/Tone: Normal Skin: Normal Respiratory: Normal Head: Normal Alertness/Interest: Abnormal Sleepy GI/Diaper Area: Normal Assessment Optimal Readiness to Feed: Adequate Physical Readiness and Age Appropriate Feeding Behavior
== END 2024-02-08 11:25 | disposition home or self-care (01) | DRG 769 ==
LOC: ER 06:46 → BCD 06:57 → OBS 08:58
PROVIDERS: Admitting Provider Obstetrics & Gynecology; Emergency Provider Student in an Organized Health Care Education/Training Program; PCP Midwife; Visit Provider Obstetrics & Gynecology
PROC: 0UQC7ZZ Repair Cervix, Via Natural or Artificial Opening (ICD-10-PCS; CPT 59841; principal; 2024-02-07 07:30)
DX: O72.1 Other immediate postpartum hemorrhage (principal); O75.1 Shock during or following labor and delivery; O71.3 Obstetric laceration of cervix; D25.9 Leiomyoma of uterus, unspecified; O70.0 First degree perineal laceration during delivery
CPT/HCPCS: 57720; 59160; 59300; 00123; 36415; 80053; 85027; 86850; 86900; 86901; 86920; 88305; 96374; 99291; 85025; 88304; J0131; J0690; J1100; J2250; J2405; J2598; J2704